=== PATIENT | female | born 1980 | race Caucasian/White ===

== ENCOUNTER 2017-05-08 13:15 | Emergency (ER) | payer BC ==
[~2017-05-08] VITALS: Ht 149.9 cm; Wt 59.0 kg
[2017-05-08] MEDS ORDERED: IV NS 1000 ML 1,000 ML IV ONE ×3 (14:00→14:30)
[2017-05-08] MEDS ORDERED: ONDANSETRON IV *ER 4 MG/2 ML VIAL IV ONE (14:05)
[2017-05-08] MEDS ORDERED: PANTOPRAZOLE SODIUM 40 MG VIAL IV ONE (14:15)
--- NOTE | 2017-05-08 14:15 | NUR ---
Pt moved to room 1b, placed on quality assurance monitor chassis and cont pulse ox.
[2017-05-08] MEDS ORDERED: IOHEXOL 300MG/ML 100 ML INFUS..BTL ONE (14:16)
[2017-05-08] MEDS ORDERED: IV NORMAL SALINE 250 ML IV ONE (14:16)
--- NOTE | 2017-05-08 14:19 | NUR ---
DR ALVES WAS CALLED AND LEFT MESSAGE WAITING FOR CALLBACK.
--- NOTE | 2017-05-08 14:20 | NUR ---
Female animal control officer accompanied female patient for (DR Boykin).
--- NOTE | 2017-05-08 14:20 | NUR ---
Pt to CT via vannesa with ACLS guidelines in place with insulator technician and Puja DAIGLE.
[2017-05-08 14:26] LABS: BASOPHILS # (AUTO) 0.1 K/uL (0.0-8.0); BASOPHILS % (AUTO) 0.7 % (0.0-2.0); EOSINOPHILS % (AUTO) 0.2 % (0.0-7.0); HEMATOCRIT 34.3 % (31.2-41.9); HEMOGLOBIN 11.7 g/dL (10.9-14.3); LYMPHOCYTES # (AUTO) 0.5 K/uL (20.0-40.0); LYMPHOCYTES % (AUTO) 4.1 % (20.5-51.5); MEAN CORPUSCULAR HEMOGLOBIN 29.8 uug (24.7-32.8); MEAN CORPUSCULAR HGB CONC 34 g/dL (32.3-35.6); MEAN CORPUSCULAR VOLUME 87.6 fL (75.5-95.3); MONOCYTES # (AUTO) 0.6 K/uL (2.0-10.0); MONOCYTES % (AUTO) 4.4 % (0.0-11.0); NEUTROPHILS # (AUTO) 11.4 K/uL (1.8-8.9); NEUTROPHILS % (AUTO) 90.6 % (38.5-71.5); PLATELET COUNT (AUTO) 232 K/uL (179-408); RED BLOOD CELL COUNT(AUTO) 3.91 MIL/uL (3.63-4.92); WHITE BLOOD COUNT (AUTO) 12.6 K/uL (3.8-11.8)
--- NOTE | 2017-05-08 14:30 | NUR ---
DR ALVES CALLED AND SPOKE TO DR LOPEZ.
[2017-05-08 14:33] LABS: CREATININE 0.7 mg/dL (0.6-1.3); POTASSIUM 3.1 mmol/L (3.5-5.1)
[2017-05-08 14:39] LABS: BILIRUBIN,TOTAL 0.4 mg/dL (0.2-1.0); TOTAL PROTEIN, SERUM 5.8 g/dL (6.4-8.2)
--- NOTE | 2017-05-08 14:40 | NUR ---
JEANETTE FROM [facility] CALLED MADE AWARE OF DR LOPEZ REQUEST FOR HIGHER LEVEL OF CARE TRANSFER.
[2017-05-08] MEDS ORDERED: ONDANSETRON 4 MG/2 ML VIAL ONE (14:49)
[2017-05-08] MEDS ORDERED: PANTOPRAZOLE SODIUM 40 MG VIAL ONE (14:50)
--- NOTE | 2017-05-08 14:50 | NUR ---
Pt signed consent for blood transfusion after speaking with .
[2017-05-08] MEDS ORDERED: MORPHINE SULFATE 2 MG/1 ML DISP.SYRIN IV ONE (15:02)
[2017-05-08] MEDS ORDERED: MORPHINE SULFATE 4 MG/1 ML DISP.SYRIN ONE (15:11)
--- NOTE | 2017-05-08 15:30 | NUR ---
ER MD spoke to trauma surgeon at [facility](Dr Camacho). Pt to be transfered to [facility] by paramedics.
--- NOTE | 2017-05-08 15:44 | NUR ---
Pt left ER w/ Paramedics in guarded condition, all belonging sent w/ pt.
== END 2017-05-08 16:06 | disposition short-term general hospital (02) ==
LOC: ER 13:15
DX: S31.41XA Laceration without foreign body of vagina and vulva, initial encounter (principal); K63.1 Perforation of intestine (nontraumatic); K62.5 Hemorrhage of anus and rectum; X58.XXXA Exposure to other specified factors, initial encounter; Y93.89 Activity, other specified; Y92.89 Other specified places as the place of occurrence of the external cause; Y99.8 Other external cause status
CPT/HCPCS: 36415; 84703; 85025; 85610; 86850; 86900; 86901; 86920; 93005; A4663; C9113; J2270; J2405; J7030; J7040; J7050; Q9967